=== PATIENT | male | born 1930 | race Caucasian/White ===

== ENCOUNTER 2016-07-11 18:55 | Inpatient (IN) | payer MEDICARE, OTHER ==
[~2016-07-11] VITALS: Ht 172.7 cm; Wt 85.7 kg
[~2016-07-11 18:55] MED LIST: ZES10 PO
[2016-07-11 21:38] VITALS: PULSE 92
[2016-07-11 21:40] VITALS: BP 118/56; PULSE 104; RESP 31; O2SAT 99
--- NOTE | 2016-07-11 21:42 | ABG ---
DateTimeAnalyzed 21:37:00 -_ pH ____7.436 - 7.350 7.450 pCO2 ___34.9__ -mmHg 35.0 45.0 pO2 137 -mmHg 69.0 116 HCO3- ___23.1__ -mmol/L 22.0 26.0 ABE ___-0.1__ -mmol/L -2.0 2.0 tHb ___13.9__ -g/dL O2Hb ___97.2__ -% COHb ____0.6__ -% MetHb ____1.0__ -% sO2 ___98.8__ -% 25.0 FIO2 __100.0__ -% Drawn By MM - Date/Time Notified____ 21:42:00 -_ Oxygen Device 1 NON RE-ANDRES - Notified By MM - Notified Whom RN - B 755 -mmHg tO2 ___19.1__ -Vol% Anand test N/A -
[2016-07-11] MEDS ORDERED: 0.9% Sodium Chloride 1,000 ML ONE (22:13)
[2016-07-11] MEDS ORDERED: Polyethylene Glycol (PEG) 17 Gm Powder PO PRN (23:05)
[2016-07-11] MEDS ORDERED: Alum-Mag Hydrox-Simeth 30 mL Suspension PO PRN (23:05)
[2016-07-11] MEDS ORDERED: 0.9% Sodium Chloride 1,000 ML IV ONE (23:05)
[2016-07-11] MEDS: 0.9% Sodium Chloride 1,000 ML IV SCH (23:43)
[2016-07-11 23:52] VITALS: BP 151/79; PULSE 104; RESP 34; O2SAT 95
[2016-07-12] VITALS (10 sets, daily range): BP systolic 115–153; BP diastolic 69–95; PULSE 79–101; RESP 23–40; O2SAT 95–98
--- NOTE | 2016-07-12 00:02 | PCM.HPMED ---
Subjective Date of Service Jul 11, 2016 Primary Provider: Admitting Physician: Aby Pagan MD Primary Care Physician: Yesenia Saldana MD Attending Physician: Aby Pagan MD Admit Status: Direct Admit Chief Complaint: Shortness of Breath History of Present Illness: H&P taken from Chart due to patient's mental status Mr. Foss is an 86 year old male with a history of hypertension being directly admitted from [place] for increasing difficulty breathing for 3 days with positive influenza screen. He was started on Tamiflu by his PCP on Monday and reports cough, low grade fever, myalgias, and weakness for three days with progression to confusion and labored breathing requiring increasing oxygen and duonebs to maintain normal saturation. The patient has a history of dementia at baseline, which has gotten progressively worse over the past 5 years , and now lives with his son. All other review of systems are unobtainable as there is no family available for discussion and patient is disoriented and mildly delirious. Review of Systems: Taken from chart due to patient's mental status (+) Fever, chills, fatigue, congestion, cough, SOB, wheezing, confusion, hallucinations (-) Sore throat, sinus pressure, chest pain, nausea/vomiting, abdominal pain All systems that were available to be reviewed were reviewed and pertinent positive and negatives found in history of present illness. All other systems are unable to be reviewed this time. Allergies Coded Allergies: No Known Allergies (Unverified , 07/11/16) Please verify with patient. Home Medications Cyanocobalamin 1000 mcg/mL injection Donepezil 10 mg tablet nightly Lisinopril 30 mg tablet daily Oseltamivir 75 mg capsule taken twice a day Questionable Bactrim 800-60 mg taken twice daily PMH Hypertension Urinary Incontinence, self-cath Dementia Vitamin and B12 deficiency Questionable prostate cancer status post TURP Surgical History TURP x2 Appendectomy Family History Unable to obtain due to patient's mental status Social History Hx Alcohol Use: Yes Hx Substance Use: No Hx Tobacco Use: No Living Arrangement: with Family (lives with son) Exam Vital Signs Vital Sign - Last Date Time Temp Pulse Resp B/P Pulse Ox O2 Delivery O2 Flow Rate FiO2 07/11/16 21:40 38.6 104 31 118/56 99 Non-Rebreather 15.00 Exam General - Elderly gentleman laying in bed, appears intermittently distressed but calms when told where he is. HEENT - NCAT (no obvious signs of fall or trauma), membranes moist. Anicteric sclera, PERRLA. Neck - Nontender CV - RRR, no m/g/r. Pulses intact. Lungs - Tachypneic, using accessory muscles to breathe when agitated. He is wheezing throughout all iqbal, with rhonchi in the LLL. Patient is currently on oxygen mask at 6 L; previously on BiPAP Abd - Soft, NT/ND. +BS. No guarding. Neuro - Alert, but completely disoriented. He has normal strength but is not cooperative enough for a full neuro exam. Skin - Warm, no rashes noted. Extremities - No cyanosis, clubbing, or edema. Psych - Anxious, agitated, distressed. He is noncommunicative but calms somewhat when told where he is. Lab and Diagnostics Labs Transfer labs from [facility] Influenza A PCR, positive WBC 7, RBC 4.51, Hgb 14.5, Hct 42.1, Plates 100, 89% neut Sodium 134, Potassium 3.8, Chloride 101, CO2 22, Anion Gap 11, Glucose 126, BUN 21, Creatinine 1.09 Total Protein 6.9, Albumin 3.5, Calcium 8.2, Mg 2.1, Phos 2.4, Total Bilirubin 0.9, Alk Phos 58, AST 36, ALT 27, Lactic Acid 0.7 UA pH 5.5, trace Leuk esterase, positive nitrite, 1+ blood, 2+ ketones, 4-5 WBC , 2+ bacteria X-Rays, CTs and MRIs Chest X-Ray, AP Portable, from [facility] Impression: Left lower lobe airpace disease suggesting pneumonia. Signed by: Mark Paez MD 07/11/2016 1:50 PM, [place] Time 12-lead ECG From EKG taken at [facility]): Normal sinus rhythm with rate between 90 and 100, access is appropriate, no LVH, no bundle branch blocks identified, significant artifact distorting EKG; QTC of 445 Assessment & Plan 86 year old male with increasing difficulty breathing, positive for influenza A , and with LLL infiltrate on chest x-ray. #1 Acute hypoxic respiratory failure, present on admission; ongoing -Patient positive for influenza A and LLL pneumonia -Patient is not on O2 at baseline, requiring 6 L by oxymask to maintain normal sats -Patient is DNI, will utilize Bipap if unable to maintain sats -Treat underlying cause as below -We will use BiPAP as necessary #2 Acute Sepsis; appears on admission; ongoing -Patient presents with a fever greater than 38, tachycardiac over 100, respirations over 22, however white count is normal per transferred labs -Source is left lower lobe pneumonia versus new UTI -Patient on antibiotics as below -Lactic acid normal; repeat labs -Patient given 2 L normal saline on admission; we will continue fluids at 100 mL an hour -Blood cultures obtained prior to initiation of antibiotics; sputum culture ordered and pending -Procalcitonin pending along with additional CBC and CMP #3 Influenza A, present on admission; ongoing -Patient has a positive influenza A swab per [facility] on tamiflu since 07/08/16 -Continue Tamiflu 75 mg twice a day #4 suspected community-acquired versus aspiration pneumonia, acute, present on admission; ongoing -Patient is tachypneic and requiring O2 with LLL infiltrate on CXR; -Received 2gm Rocephin at [facility] -Switch Rocephin to Zosyn to cover possibility of aspiration -Procalcitonin pending #5 Acute on chronic Confusion secondary to acute sepsis, present on admission; ongoing -Patient has baseline dementia but by report has worsened over the weekend -Likely secondary to sepsis and hypoxia -Seroquel 12.5 mg for agitation -Continue home donepezil in the a.m. #6 Concern for UTI second to incontinence, present on admission, ongoing -Patient self-caths at home; on transfer his UA reveals trace leukocyte esterase , positive nitrite, WBCs, and bacteria are all present -Repeat UA with culture -Lemon ordered for now, we will need to change once confirmation of UTI -Zosyn should be sufficient for this time Disposition: Patient being admitted to general medical floor with expected length of stay greater than two midnight due to severity of presentation, duration of treatment, and risk of adverse events. Pain Evaluation: Adequate Pain Control GI Prophylaxis: H2 you VTE Prophylaxis: Sub-Q Heparin (Unfractionated) Resuscitation Status: Limited Interventions Limited Interventions: BiPAP, Medications and IV Fluid Attending Statement The patient was seen and examined together with Dr. Rogers on 1/16 and I agree with the history, exam and plan as outlined in the note above. Yoni Rogers DO Jul 12, 2016 00:02 Joseph Suarez MD Jul 12, 2016 03:31
[2016-07-12 00:24] LABS: Magnesium 2.1 mg/dL (1.6-2.6)
[2016-07-12] MEDS: Piperacillin-Tazo 3.375 Gm Inj 3.375 GM in Dextrose 5% Minibag Plus 50 ML IV SCH ×3 (01:19→17:01)
[2016-07-12] MEDS ORDERED: 0.9% Sodium Chloride 500 ML IV ONE (01:45)
[2016-07-12] MEDS ORDERED: OSEL75CA15 (03:37)
[2016-07-12] MEDS ORDERED: SULF1TAB7 (03:37)
[2016-07-12] MEDS ORDERED: DONE10TA42 (03:37)
--- NOTE | 2016-07-12 04:01 | NUR ---
ADMIT Received pt from [facility] Monday, on 15L nonrebreather, Positive for FLU A, placed in droplet Isolation, pt confused, disoriented, and hallucinating, unable to answer any medical questions. Medical record reports history of dementia. ABGs drawn by RT, see report in chart, pt placed on 6l oxy mask sats 96%. LS course with wheezing throughout, using accessory muscles. TEL shows a ST. SEE Flow records
[2016-07-12 04:57] LABS: APPEARANCE,URINE HAZY (CLEAR,HAZY); COLOR,URINE YELLOW (YELLOW); OCCULT BLOOD,URINE MODERATE (NEGATIVE); UROBILINOGEN,URINE NORMAL (NORMAL)
--- NOTE | 2016-07-12 09:03 | DRSVH ---
PROCEDURE: X-RAY CHEST ONE VIEW, PORTABLE ([id number]) INDICATIONS: dyspnea TECHNIQUE: One view of the chest was acquired. COMPARISON: None. FINDINGS: Surgical changes and devices: None. Lungs and pleura: Pulmonary vasculature is prominent and patchy bibasilar airspace opacities are note d, left greater than right. No pleural effusion or pneumothorax. Mediastinum: Mediastinal contours appear normal. Heart size is normal. Bones and chest wall: No suspicious bony lesions. Overlying soft tissues appear unremarkable. IMPRESSION: Mild edema is suspected and atelectasis versus patchy pulmonary edema or pneumonia involving the lung bases. Recommend clinical correlation. Dictated by: Mateo JENSEN Interpreted: Elizabeth Gil MD on 07/12/2016 at 9:02 Transcribed by: LUIS on 07/12/2016 at 9:02 Approved by: Elizabeth Gil M.D. on 07/12/2016 at 16:12
[2016-07-12 09:19] LABS: BASOPHILS % (AUTO) 0.1 % (0-3); EOSINOPHILS % (AUTO) 0 % (0-5); MONOCYTES % (AUTO) 2.6 % (4-12); Mean Corpuscular Hemoglobin 31.5 pg (27.0-35.0); NEUTROPHILS % (AUTO) 87.3 % (40-74); Platelet Count 89 bil/L (150-400)
[2016-07-12] MEDS: Albuterol-Ipratropium 3 mL Inhalation Solution NEB PRN ×3 (10:13→21:01)
--- NOTE | 2016-07-12 10:37 | ABG ---
DateTimeAnalyzed 10:33:00 -_ pH ____7.417 - 7.350 7.450 pCO2 ___37.4__ -mmHg 35.0 45.0 pO2 101 -mmHg 69.0 116 HCO3- ___23.7__ -mmol/L 22.0 26.0 ABE ___-0.1__ -mmol/L -2.0 2.0 tHb ___13.1__ -g/dL O2Hb ___96.0__ -% COHb ____0.7__ -% MetHb ____1.1__ -% sO2 ___97.8__ -% 25.0 FIO2 ___50.0__ -% Drawn By gj - Date/Time Notified____ 10:37:00 -_ Liter_Flow ___10.0__ -L/min Oxygen Device 1 __OXYMASK - Notified By gj - Notified Whom ___MULDER - B 750 -mmHg tO2 ___17.7__ -Vol% Anand test _Positive -
[2016-07-12] MEDS: 0.9% Sodium Chloride 1,000 ML IV SCH ×2 (12:39→20:19)
[2016-07-12] MEDS: Nystatin 100,000 Unit/Gm 15 Gm Powder TOPICAL SCH ×2 (12:40→20:18)
--- NOTE | 2016-07-12 14:03 | NUR ---
Evaluation completed. Rec: Strict NPO. Discussed with RN. CAR FILLER to follow. Please go to "Notes" then click on "Assessments and Notes" (bottom left corner of screen). Then select appropriate discipline tab on top of screen.
[2016-07-12] MEDS ORDERED: PERAMIVIR IV ONE (17:00)
[2016-07-12] MEDS ORDERED: SODIUM CHLORIDE 0.9% IV ONE (17:00)
[2016-07-12] MEDS: Azithromycin Inj 500 MG in Dextrose 5% w/Vial Mate 250 ML IV SCH (20:18)
[2016-07-13] VITALS (13 sets, daily range): BP systolic 120–159; BP diastolic 62–98; PULSE 72–98; RESP 20–35; O2SAT 93–99
[2016-07-13] MEDS: Piperacillin-Tazo 3.375 Gm Inj 3.375 GM in Dextrose 5% Minibag Plus 50 ML IV SCH ×3 (00:48→15:49)
[2016-07-13] MEDS: 0.9% Sodium Chloride 1,000 ML IV SCH ×3 (00:52→15:56)
--- NOTE | 2016-07-13 02:37 | NUR ---
P) Respiratory/LOC/Cardiac Pt. pleasant but extremely confused and hallucinating, asking if we can fly the helicopter in his room, trying to leave, throwing legs out of bed and pulling at IV and monitors even though restrained. Cardiac rhythm sinus/sinus tach, lungs with decreased breath sounds and scattered wheezes throughout, weak cough, pt. unable to understand and give sputum sample,. I) frequent reorientation, suctioned orally for small sputum sample. C) thrashing about in bed and asking for knives so he can cut restraints and leave, pleasant demeanor, very sad.
[2016-07-13 03:02] LABS: BASOPHILS % (AUTO) 0.1 % (0-3); EOSINOPHILS % (AUTO) 0 % (0-5); MONOCYTES % (AUTO) 3.5 % (4-12); Mean Corpuscular Hemoglobin 31.9 pg (27.0-35.0); Mean Corpuscular Volume 94.9 fL (81-100); NEUTROPHILS % (AUTO) 85.3 % (40-74); Platelet Count 77 bil/L (150-400)
[2016-07-13 03:24] LABS: Phosphorus 1.7 mg/dL (2.5-4.9)
[2016-07-13] MEDS: Albuterol-Ipratropium 3 mL Inhalation Solution NEB PRN ×4 (05:37→17:26)
[2016-07-13] MEDS: Azithromycin Inj 500 MG in Dextrose 5% w/Vial Mate 250 ML IV SCH (08:16)
[2016-07-13] MEDS: Nystatin 100,000 Unit/Gm 15 Gm Powder TOPICAL SCH ×2 (08:16→20:30)
--- NOTE | 2016-07-13 09:14 | NUR ---
CATHIE Signed [phone]
--- NOTE | 2016-07-13 13:10 | PCM.PNMED ---
Subjective Date of Service Jul 13, 2016 Subjective 86-year-old man with respiratory distress due to influenza and acute delirium with chronic dementia. Patient is awake and sitting in a chair. He is responsive to voice. He offers minimal meaningful communication. He appears to be comfortable. Exam Vital Signs Vital Sign - Last Date Time Temp Pulse Resp B/P Pulse Ox O2 Delivery O2 Flow Rate FiO2 07/13/16 12:44 37.2 80 28 120/76 95 OxyMask 8.00 Intake and Output 07/12/16 07/12/16 07/13/16 Cumulative From/Thru 15:00 23:00 07:00 07/11/16 21:41 - 07/13/16 06:49 Intake Total 1081 ml 1758 ml 4397 ml Output Total 550 ml 875 ml 1875 ml Balance 531 ml 883 ml 2522 ml Intake Oral 0 ml 0 ml 0 ml IV Total 1081 ml 1758 ml 4397 ml Output Urine Total 550 ml 875 ml 1875 ml # Bowel Movements 0 0 Exam General: Elderly man in no acute distress HEENT: sclerae anicteric, oral mucosa moist Neck: no JVD, supple, no adenopathy Chest: Reduced breath sounds, diffuse rhonchi, no wheeze Cardiac: S1S2, no murmur Abdomen: BS normal, non-tender Extremities: Venous varicosities but no pitting edema Neuro: Alert but not oriented, cranial nerves appear symmetric, motor strength and tone seems normal IVs and Medications Medications Reviewed: Medications were reviewed in detail Lab and Diagnostics Result Diagram: 07/13/1621907/13/16 0220 X-Rays, CTs and MRIs Chest X-Ray, AP Portable, from [facility] Impression: Left lower lobe airpace disease suggesting pneumonia. Signed by: Mark Paez MD 07/11/2016 1:50 PM, [place] Time 12-lead ECG From EKG taken at [facility]: Normal sinus rhythm with rate between 90 and 100, access is appropriate, no LVH, no bundle branch blocks identified, significant artifact distorting EKG; QTC of 445 Assessment & Plan 86 year old male with increasing difficulty breathing, positive for influenza A , and with LLL infiltrate on chest x-ray. # Acute hypoxic respiratory failure, present on admission; ongoing -Patient positive for influenza A and LLL pneumonia -Patient is not on O2 at baseline, requiring 8-10 L by oxymask -Patient is DNI, will utilize Bipap if unable to maintain sats # Acute severe Sepsis; SIRS criteria on admission include pulse 104, respiratory rate 31, temperature 38.6. Procalcitonin elevated 0.92. Organ system dysfunction including hypoxia, decreased urine output and thrombocytopenia. -Source is left lower lobe pneumonia versus new UTI -Patient given 2 L normal saline on admission; we will continue fluids at 100 mL an hour -Blood cultures obtained prior to initiation of antibiotics; sputum culture ordered and pending -Procalcitonin pending along with additional CBC and CMP # Influenza A, present on admission; ongoing -Patient has a positive influenza A swab per [facility], on tamiflu since 07/08/16 -Continue Tamiflu 75 mg twice a day # Suspected community-acquired versus aspiration pneumonia, acute, present on admission; ongoing - Patient is tachypneic and requiring O2 with LLL infiltrate on CXR; - Received 2gm Rocephin at [facility] - Zosyn plus azithromycin initiated on admission to [facility] - Order MRSA swab, consider staphylococcal coverage if patient deteriorates clinically # Acute on chronic Confusion secondary to acute sepsis, present on admission; ongoing. Expect return to underlying baseline dementia. - Avoid benzodiazepines and anticholinergics -Continue home donepezil in the a.m. #6 Concern for UTI second to incontinence, present on admission, ongoing - Urine culture negative - Plan to discontinue Lemon catheter within 48 hours Disposition: Patient being admitted to general medical floor with expected length of stay greater than two midnight due to severity of presentation, duration of treatment, and risk of adverse events. GI Prophylaxis: H2 you VTE Prophylaxis: Sub-Q Heparin (Unfractionated) VTE Mechanical Devices: Intermittant Pneumatic CD Resuscitation Status: Limited Interventions Limited Interventions: BiPAP, Medications and IV Fluid Time spent 35 minutes Aly Plascencia MD Jul 13, 2016 13:10
--- NOTE | 2016-07-13 13:50 | NUR ---
Oxygen/ Activity: P: 8L oxymask. SpO2 high 90's. I: Pt ambulated in room with pt. SpO2 dropped to low 90's and patient had increased work of breathing, but recovers quickly. E: pt tolerated sitting up in chair for about 3 hours. Oxygen was weaned to 6L oxymask. Current SpO2: 95%
--- NOTE | 2016-07-13 15:15 | NUR ---
Social Work: Initial Assessment attempted Data: Pt has dementia at baseline. HYDROLOGY PROFESSOR called pt's son, listed as NOK, no answer, HYDROLOGY PROFESSOR left a message requesting a call back. HYDROLOGY PROFESSOR called pt's grandson, Shalini, , no answer, HYDROLOGY PROFESSOR left a message requesting a call back. PT states that SNF may be appropriate, but spoke with HYDROLOGY PROFESSOR and asked that the baseline be established with family members before recommending it. HYDROLOGY PROFESSOR will continue to follow. Plan: HYDROLOGY PROFESSOR will continue to attempt calling pt's family members to establish what pt's baseline is and will let PT know. HYDROLOGY PROFESSOR will continue to follow. LINDSEY Nicholas
--- NOTE | 2016-07-13 17:21 | PCM.PNMED ---
Subjective Date of Service Jul 12, 2016 Subjective Note written on 07/12 but not saved in the system. Rewritten on 07/13. Fabian Foss is an 86 year old male with increasing difficulty breathing, positive for influenza A, and with LLL infiltrate on chest x-ray. Hospital day 1. Overnight: Patient admitted and placed on oxymask. Increased work of breathing but maintaining O2 sats. Patient agitated and placed in restraints. Today: Patient is confused and is unable to answer questions appropriately. Continues with oxymask but has increased work of breathing noted by accessory muscle use. Review of systems unobtainable. Exam Vital Signs Vital Sign - Last Date Time Temp Pulse Resp B/P Pulse Ox O2 Delivery O2 Flow Rate FiO2 07/13/16 15:22 36.8 81 26 140/88 93 OxyMask 6.00 Intake and Output 07/12/16 07/12/16 07/13/16 Cumulative From/Thru 15:00 23:00 07:00 07/11/16 21:41 - 07/13/16 06:49 Intake Total 1081 ml 1758 ml 4397 ml Output Total 550 ml 875 ml 1875 ml Balance 531 ml 883 ml 2522 ml Intake Oral 0 ml 0 ml 0 ml IV Total 1081 ml 1758 ml 4397 ml Output Urine Total 550 ml 875 ml 1875 ml # Bowel Movements 0 0 Exam General - Elderly gentleman in mild distress lying in bed. HEENT - Membranes moist. Anicteric sclera, PERRLA. Neck - Nontender CV - RRR, no m/g/r. Pulses intact. Lungs - Tachypneic, using accessory muscles to breathe. Wheezing throughout all iqbal, with rhonchi in the LLL. Patient is currently on oxygen mask at 6 L. Abd - Soft, NT/ND. +BS. No guarding. Neuro - Alert, but completely disoriented. He has normal strength but is not cooperative enough for a full neuro exam. Skin - Warm, no rashes noted. Extremities - No cyanosis, clubbing, or edema. Psych - Anxious, agitated, distressed. He is noncommunicative but calms somewhat when told where he is. Lab and Diagnostics Result Diagram: 07/13/1621907/13/16219 X-Rays, CTs and MRIs Chest X-Ray, AP Portable, from [facility] Impression: Left lower lobe airpace disease suggesting pneumonia. Signed by: Mark Paez MD 07/11/2016 1:50 PM, [place] Time 12-lead ECG From EKG taken at [facility]: Normal sinus rhythm with rate between 90 and 100, access is appropriate, no LVH, no bundle branch blocks identified, significant artifact distorting EKG; QTC of 445 Assessment & Plan 86 year old male with increasing difficulty breathing, positive for influenza A , and with LLL infiltrate on chest x-ray. Hospital day 1. #1 Acute hypoxic respiratory failure, present on admission; ongoing -Patient positive for influenza A and LLL pneumonia -Patient is not on O2 at baseline, requiring 6 L by oxymask to maintain normal sats -Patient is DNI, will utilize Bipap if unable to maintain sats -Treat underlying cause as below -We will use BiPAP as necessary #2 Acute Sepsis; appears on admission; improving. -Patient presents with a fever greater than 38, tachycardiac over 100, respirations over 22, however white count is normal per transferred labs -Source is left lower lobe pneumonia versus new UTI -Patient on antibiotics as below -Lactic acid normal; repeat labs -Patient given 2 L normal saline on admission; we will continue fluids at 100 mL an hour -Blood cultures obtained prior to initiation of antibiotics; sputum culture ordered and pending -Procalcitonin pending along with additional CBC and CMP #3 Influenza A, present on admission; under treatment. -Patient has a positive influenza A swab per [facility], on tamiflu since 07/08/16 -Patient is NPO peramivir IV given 07/12/16. #4 suspected community-acquired versus aspiration pneumonia, acute, present on admission; ongoing -Patient is tachypneic and requiring O2 with LLL infiltrate on CXR; -Received 2gm Rocephin at [facility] -Switch Rocephin to Zosyn to cover possibility of aspiration -Procalcitonin 0.47 #5 Acute on chronic confusion secondary to acute sepsis, present on admission; ongoing -Patient has baseline dementia but by report has worsened over the weekend -Likely secondary to sepsis and hypoxia -Seroquel 12.5 mg for agitation -Continue home donepezil in the a.m. #6 Concern for UTI second to incontinence, present on admission, ongoing -Patient self-caths at home; on transfer his UA reveals trace leukocyte esterase , positive nitrite, WBCs, and bacteria are all present -Repeat UA with culture -Lemon ordered for now, we will need to change once confirmation of UTI -Zosyn should be sufficient for this time Disposition: Patient will need SNF likely upon discharge. GI Prophylaxis: H2 you VTE Prophylaxis: Sub-Q Heparin (Unfractionated) VTE Mechanical Devices: Intermittant Pneumatic CD Resuscitation Status: Limited Interventions Limited Interventions: BiPAP, Medications and IV Fluid Attending Statement The patient was seen and examined together with Dr. Purvis on 07-13-16 and I agree with the history, exam and plan as outlined in the note above. JOSH PURVIS DO Jul 13, 2016 17:21 Monet Avila MD Aug 08, 2016 09:38
[2016-07-13] MEDS: Ampicillin-Sulbactam Inj 1,500 MG in 0.9% Sodium Chloride 50 ML IV SCH (21:00)
--- NOTE | 2016-07-13 23:12 | NUR ---
O2/MENTATION Pt alert to self, impulsive and restless at times. Pt pulls at tele leads and pulse oximeter sensor. Pt currently on 6L O2 NC sating mid 90's with no SOB noted. Pt on HTL for crushed meds only, took meds with no swallowing issues. Pt frequently repositions self. No other issues noted at this time.
[2016-07-14] VITALS (8 sets, daily range): BP systolic 123–157; BP diastolic 59–94; PULSE 72–88; RESP 18–32; O2SAT 78–97
[2016-07-14] MEDS: Ampicillin-Sulbactam Inj 1,500 MG in 0.9% Sodium Chloride 50 ML IV SCH ×4 (02:30→21:58)
[2016-07-14 04:23] LABS: BASOPHILS % (AUTO) 0 % (0-3); EOSINOPHILS % (AUTO) 0.3 % (0-5); MONOCYTES % (AUTO) 4.7 % (4-12); Mean Corpuscular Hemoglobin 32.1 pg (27.0-35.0); Mean Corpuscular Volume 95.1 fL (81-100); NEUTROPHILS % (AUTO) 81.5 % (40-74); Platelet Count 99 bil/L (150-400)
[2016-07-14] MEDS: 0.9% Sodium Chloride 1,000 ML IV SCH ×2 (07:42→21:58)
[2016-07-14] MEDS: Nystatin 100,000 Unit/Gm 15 Gm Powder TOPICAL SCH ×2 (07:42→21:58)
[2016-07-14] MEDS: Azithromycin Inj 500 MG in Dextrose 5% w/Vial Mate 250 ML IV SCH (07:43)
--- NOTE | 2016-07-14 10:07 | NUR ---
Social Work: Continued Attempted Assessment D: Pt discussed in morning rounds. Pt remains confused and lethargic. Per ST pt remains NPO. PT worked with pt yesterday; pt ambulated 30 feet and is recommending SNF. At this time, pt's baseline functioning is still to be determined and will need to be identified before pt's rehab potential can be determined. Pt currently on IV ABX. t/c to pt's son, Sd Foss. No answer. Left message requested return phone call on case management phone to discuss pt's PLOF and discharge planning. A: Pt who is has dementia at baseline. P: CHIEF PROGRAM OFFICER to continue to contact pt's son to complete initial assessment and determine PLOF and dcp. LINDSEY Fisher
--- NOTE | 2016-07-14 10:15 | NUR ---
CATHIE: POULTRY TRIMMER will give CATHIE to son via phone.
[2016-07-14] MEDS: Albuterol-Ipratropium 3 mL Inhalation Solution NEB PRN (10:30)
--- NOTE | 2016-07-14 13:00 | PCM.PNMED ---
Subjective Date of Service Jul 14, 2016 Subjective The patient notes his lumbar short of breath today. He is coughing up intermittent phlegm which is yellow. He denies any chest pain. No nausea vomiting or abdominal pain. He is alert and oriented only to self. Exam Vital Signs Vital Sign - Last Date Time Temp Pulse Resp B/P Pulse Ox O2 Delivery O2 Flow Rate FiO2 07/14/16 10:31 77 28 95 Nasal Cannula 6.00 07/14/16 07:39 36.7 128/75 Intake and Output 07/13/16 07/13/16 07/14/16 Cumulative From/Thru 15:00 23:00 07:00 07/11/16 21:41 - 07/14/16 06:26 Intake Total 1562 ml 870 ml 6829 ml Output Total 2800 ml 1175 ml 5850 ml Balance -1238 ml -305 ml 979 ml Intake Oral 100 ml 0 ml 100 ml IV Total 1462 ml 870 ml 6729 ml Output Urine Total 2800 ml 1175 ml 5850 ml # Bowel Movements 0 0 Exam Third oriented 1. No distress. Fluent speech. Normal skull. Anicteric sclerae. Neck supple. Lungs scattered rhonchi minimal expiratory wheezing, normal rate Heart is regular without murmur gallop or rub. Soft nondistended. Extremities 1+ edema. Normal radial pulses. IVs and Medications Medications Reviewed: Medications were reviewed in detail Lab and Diagnostics Result Diagram: 07/14/16 0345 07/14/16344 X-Rays, CTs and MRIs Chest X-Ray, AP Portable, from [facility] Impression: Left lower lobe airpace disease suggesting pneumonia. Signed by: Mark Paez MD 07/11/2016 1:50 PM, [place] Time 12-lead ECG From EKG taken at [facility]: Normal sinus rhythm with rate between 90 and 100, access is appropriate, no LVH, no bundle branch blocks identified, significant artifact distorting EKG; QTC of 445 Assessment & Plan 86 year old male with increasing difficulty breathing, positive for influenza A , and with LLL infiltrate on chest x-ray. Hospital day 1. #1 Acute hypoxic respiratory failure, present on admission; ongoing -Patient positive for influenza A and LLL pneumonia -Patient is not on O2 at baseline, requiring 6 L by oxymask to maintain normal sats -Patient is DNI, will utilize Bipap if unable to maintain sats -Treat underlying cause as below -We will use BiPAP as necessary This is slowly improving. #2 Acute Sepsis; appears on admission; improving. -Patient presents with a fever greater than 38, tachycardiac over 100, respirations over 22, however white count is normal per transferred labs -Source is left lower lobe pneumonia versus new UTI -Patient on antibiotics as below - #3 Influenza A, present on admission; under treatment. -Patient has a positive influenza A swab per [facility], on tamiflu since 07/08/16 -Patient is NPO peramivir IV given 07/12/16. #4 suspected community-acquired versus aspiration pneumonia, acute, present on admission; ongoing -Patient is tachypneic and requiring O2 with LLL infiltrate on CXR; -Received 2gm Rocephin at [facility] We will simplify to Zosyn only for possible aspiration pneumonia. #5 septic encephalopathy, in context of chronic dementia., present on admission ; ongoing -Patient has baseline dementia but by report has worsened over the weekend -Likely secondary to sepsis and hypoxia -Seroquel 12.5 mg for agitation -Continue home donepezil in the a.m. #6 Concern for UTI , cultures ultimately did not support this. Disposition: Patient will need SNF likely upon discharge. Pain Evaluation: Adequate Pain Control GI Prophylaxis: H2 you VTE Prophylaxis: Sub-Q Heparin (Unfractionated) VTE Mechanical Devices: Intermittant Pneumatic CD Resuscitation Status: Limited Interventions Limited Interventions: BiPAP, Medications and IV Fluid Time spent 25 minutes Anand Canseco MD Jul 14, 2016 13:00
--- NOTE | 2016-07-14 15:39 | NUR ---
NUTRITION ASSESSMENT Assess: 86 yo M w/ acute hypoxic respiratory failure, LLL pneumonia, influenza A, and acute encephalopathy in context of dementia. Pt has been NPO x3 days w/ diet advanced today to pureed w/ honey thick liquids per ST and tolerating well. Pt is only alert and oriented to himself. PMHx: HTN, Dementia, Vit B12 deficieny LABS: Reviewed. BUN 7, Cr 0.71, Ca 7.7, Albumin 2.8 MEDICATIONS: Reviewed DIET: Pureed w/ HTL, PO 100% GI symptoms/stool: No BM recorded Skin integrity: No issues reported; Bill: 15 ANTHROPOMETRICS: Current Wt: 84.5 kg BMI: 28.3 kg/y5Fogol Wt: 83.6 kg IBW: 70 kgRecent wt changes: Wt stable ESTIMATED NEEDS: Calories: 1062-7562 kcal/d (25-30 kcal/kg/d) Protein: 85-100 g/d (1-1.2 g/kg/d) Fluids: 6376-8928 ml/d (25-30 ml/kg/d) NUTRITION DIAGNOSIS: 1) Chewing/swallowing difficulty related to mentation as evidenced by dementia. INTERVENTION: 1) Diet per ST recommendations 2) Will add supplements as appropriate MONITOR/EVALUATE: PO intake, Diet adv/abdulkadir, Labs, Wt, Nutrition status, POC. Will follow per moderate nutrition risk guidelines.
--- NOTE | 2016-07-14 16:15 | DRSVH ---
PROCEDURE: X-RAY CHEST ONE VIEW, PORTABLE ([id number]) INDICATIONS: cough TECHNIQUE: One view of the chest was acquired. COMPARISON: [facility], CR, XR CHEST 1VW (PORTABLE), 07/11/2016, 23:05. FINDINGS: Surgical changes and devices: None. Lungs and pleura: No pleural effusions or pneumothorax. Bibasilar airspace opacities present, left greater than right, otherwise lungs are clear. Mediastinum: Mediastinal contours appear normal. Heart size is normal. Bones and chest wall: No suspicious bony lesions. Overlying soft tissues appear unremarkable. IMPRESSION: Bibasilar atelectasis versus aspiration or pneumonia. Correlate clinically. Dictated by: Mateo Matos RRA Interpreted: Ping Raygoza MD on 07/14/2016 at 16:14 Transcribed by: MARISA on 07/14/2016 at 16:14 Approved by: Ping Raygoza MD, PhD on 07/14/2016 at 16:35
--- NOTE | 2016-07-14 17:28 | NUR ---
Activity Patient alert and oriented to self only. Requires constant reorienting to surroundings and situation. Diet upgraded to pureed, patient up in chair for meals and tolerating well. 1PA to BSC. Maintaining SpO2 in mid 90s on 6L NC. All other VSS. Patient resting in bed with eyes closed,call light within reach.
[2016-07-15] VITALS (10 sets, daily range): BP systolic 133–160; BP diastolic 80–106; PULSE 80–104; RESP 18–24; O2SAT 90–95
[2016-07-15] MEDS: Ampicillin-Sulbactam Inj 1,500 MG in 0.9% Sodium Chloride 50 ML IV SCH ×4 (05:22→20:19)
--- NOTE | 2016-07-15 05:27 | NUR ---
Mentation/Respiratory Pt alert to self only and needs frequent reorientation of plan of care and environment. Pt cooperative with care and pleasant. Pt titrated from 6L NC to 4L NC with SpO2 95%. VSS and pt is no longer on tele.
[2016-07-15] MEDS: 0.9% Sodium Chloride 1,000 ML IV SCH ×2 (07:05→17:05)
--- NOTE | 2016-07-15 08:22 | PCM.PNMED ---
Subjective Date of Service Jul 15, 2016 Subjective He is still a little dyspneic. Cough is improving. No fevers or nausea. No abdomen pain. Exam Vital Signs Vital Sign - Last Date Time Temp Pulse Resp B/P Pulse Ox O2 Delivery O2 Flow Rate FiO2 07/15/16 04:46 36.6 82 22 141/87 91 Nasal Cannula 4.00 Intake and Output 07/14/16 07/14/16 07/15/16 Cumulative From/Thru 15:00 23:00 07:00 07/11/16 21:41 - 07/15/16 06:08 Intake Total 1715 ml 1228 ml 9772 ml Output Total 975 ml 700 ml 7525 ml Balance 740 ml 528 ml 2247 ml Intake Oral 360 ml 240 ml 700 ml IV Total 1355 ml 988 ml 9072 ml Output Urine Total 975 ml 700 ml 7525 ml # Bowel Movements 1 1 2 Exam NAD, fluent speech Lungs 2/4 sounds. Some expiration wheezing. CV RRR Abdomen soft, NT No edema No rash IVs and Medications Medications Reviewed: Medications were reviewed in detail Lab and Diagnostics Result Diagram: 07/14/16 0345 07/15/16 0240 X-Rays, CTs and MRIs Chest X-Ray, AP Portable, from [facility] Impression: Left lower lobe airpace disease suggesting pneumonia. Signed by: Mark Paez MD 07/11/2016 1:50 PM, [place] Time 12-lead ECG From EKG taken at [facility]: Normal sinus rhythm with rate between 90 and 100, access is appropriate, no LVH, no bundle branch blocks identified, significant artifact distorting EKG; QTC of 445 Assessment & Plan 86 year old male with increasing difficulty breathing, positive for influenza A , and with LLL infiltrate on chest x-ray. Hospital day 1. #1 Acute hypoxic respiratory failure, present on admission; ongoing -Patient positive for influenza A and LLL pneumonia The patient is slowly improving but still has an oxygen requirement about 2-3 L nasal cannula. #2 Acute Sepsis; appears on admission; resolved.. -Patient presents with a fever greater than 38, tachycardiac over 100, respirations over 22, however white count is normal per transferred labs -Source is left lower lobe pneumonia versus new UTI -Patient on antibiotics as below - #3 Influenza A, present on admission; under treatment. -Patient has a positive influenza A swab per [facility], on tamiflu since 07/08/16 -Patient is NPO peramivir IV given 07/12/16. #4 suspected community-acquired versus aspiration pneumonia, acute, present on admission; ongoing -Patient is tachypneic and requiring O2 with LLL infiltrate on CXR; -Received 2gm Rocephin at [facility] We will simplify to Unasyn only for possible aspiration pneumonia. #5 septic encephalopathy, in context of chronic dementia., present on admission ; improved -Patient has baseline dementia but by report has worsened over the weekend -Likely secondary to sepsis and hypoxia -Seroquel 12.5 mg for agitation -Continue home donepezil in the a.m. 6. Baseline dementia, POA. Stable. I had a discussion on the telephone with his son today. They have looked at using this point in time as a bridge from living independently to a more assisted living situation in Monday. The patient currently has severe medical debilitation from his acute illness and well benefit from a long-term facility rehabilitation Tanya will begin organize this, likely in Monday. Disposition: Patient will need SNF likely upon discharge. Pain Evaluation: Adequate Pain Control GI Prophylaxis: H2 you VTE Prophylaxis: Sub-Q Heparin (Unfractionated) VTE Mechanical Devices: Intermittant Pneumatic CD Resuscitation Status: Limited Interventions Limited Interventions: BiPAP, Medications and IV Fluid Time spent 25 minutes Anand Canseco MD Jul 15, 2016 08:22
[2016-07-15 08:25] LABS: Mean Corpuscular Hemoglobin 31.9 pg (27.0-35.0); Mean Corpuscular Volume 95.6 fL (81-100)
[2016-07-15] MEDS: Nystatin 100,000 Unit/Gm 15 Gm Powder TOPICAL SCH ×2 (08:30→20:23)
--- NOTE | 2016-07-15 09:26 | NUR ---
Social Work: Initial Assessment D: Per EMR review; pt is an 86 year old male admitted for POS Flu, Tachypneic, Confusion. Pt is Medicare with [employer] out of [place]; pt has no LTC insurance or VA benefits. PCP Is Yesenia Saldana MD. NOK is Sd Foss, son, . Advanced directives completed but not on file- pt's son will provide copy. Readmit score is low, 2/8. t/c to pt's son to complete assessment. Sw role explained. See initial assessment. Pt lives with his son on Monday. Prior to admission, pt was completely I with ambulation and used no DME. Pt has baseline dementia and requires assistance with medications, meal prep and chores. Pt has a visiting nurse that the family has hired who comes to the pt's home for catheter management. Family has been working with [facility] in [place] and have put a deposit down on the pt's room. SHERIFF reviewed PT recommendations for SNF with family however they do not wish for pt to go to skilled rehab as they feel it would confuse him. SHERIFF reviewed that pt has been ambulating 60 feet with FWW, they feel this is baseline for him expect for the use of the walker. They do have a walker available to them for pt's use. Family provided verbal consent to send clinical information to the [facility]. t/c to Keith, academic affairs director, at the [facility] ( ). He states that they will not need to complete a bedside assessment but would like clinicals sent to ([phone] attn: Keith) so that he can review. He is meeting with the family today. They are prepared to accept the pt over the weekend. AUDIO VISUAL ARTS DIRECTOR to fax clinicals. A: Pt with baseline dementia. P: Anticipate pt to discharge to [facility] when medically ready; they are reviewing pt's clinicals and do not require a bedside assessment prior to admission. Family to transport the pt. SHERIFF to continue to follow. LINDSEY Fisher Addendum: 07/15/16 at 1029 by SHANTE KENNEDY SS Amended: Links added.
--- NOTE | 2016-07-15 09:30 | NUR ---
[facility] Signed
--- NOTE | 2016-07-15 10:33 | NUR ---
Faxed clinicals to [facility] [phone] ATTN:Keith hugo MSW
--- NOTE | 2016-07-15 14:00 | NUR ---
Impulsiveness/safety concerns 2' to Dementia Ongoing impulsiveness, restlessness and disorientation requiring several hours of 1:1 RN @ bedside to keep pt safe. All options used; by 1400 though pt requiring Sitter for safety issues. MDs aware.
[2016-07-16] MEDS: Ampicillin-Sulbactam Inj 1,500 MG in 0.9% Sodium Chloride 50 ML IV SCH ×4 (02:52→21:22)
[2016-07-16 03:23] LABS: BASOPHILS % (AUTO) 0.2 % (0-3); EOSINOPHILS % (AUTO) 3.3 % (0-5); MONOCYTES % (AUTO) 10.3 % (4-12); Mean Corpuscular Hemoglobin 31.6 pg (27.0-35.0); Mean Corpuscular Volume 93.4 fL (81-100); NEUTROPHILS % (AUTO) 64.7 % (40-74); Platelet Count 161 bil/L (150-400)
--- NOTE | 2016-07-16 04:33 | NUR ---
mentation/ respiratory Pt alert to self, but very forgetful and impulsive. Although confused, pt very pleasant and compliant with care. Sp02 maintained mid 90s on 3 l NC- pt does desat into mid when he takes off NC. Sitter rounding on pt- frequent reorientation and direction given. Pt only sleeping minimal amounts.
[2016-07-16] MEDS: 0.9% Sodium Chloride 1,000 ML IV SCH ×3 (06:28→18:07)
--- NOTE | 2016-07-16 08:17 | PCM.PNMED ---
Subjective Date of Service Jul 16, 2016 Subjective He feels somewhat better. He is still coughing. He is less short of breath. He denies any headache, chest pain or abdominal pain. No nausea or diarrhea. Exam Vital Signs Vital Sign - Last Date Time Temp Pulse Resp B/P Pulse Ox O2 Delivery O2 Flow Rate FiO2 07/15/16 23:35 36.6 82 23 157/91 94 Nasal Cannula 3.00 Intake and Output 07/15/16 07/15/16 07/16/16 Cumulative From/Thru 15:00 23:00 07:00 07/11/16 21:41 - 07/16/16 06:41 Intake Total 1322 ml 1672 ml 1518 ml 33239 ml Output Total 400 ml 1000 ml 3000 ml 74865 ml Balance 922 ml 672 ml -1482 ml 2359 ml Intake Oral 350 ml 700 ml 400 ml 2150 ml IV Total 972 ml 972 ml 1118 ml 06007 ml Output Urine Total 400 ml 1000 ml 3000 ml 67967 ml # Bowel Movements 1 2 5 Exam Alert and oriented to self. No distress. Fluent speech. Lungs are mostly clear with minimal wheezing. No focal findings, normal effort rate Heart is regular without murmur gallop or rub Abdomen is soft nondistended. Extremities are free of edema with good pedal pulses. Skin is free of rash or lesions IVs and Medications Medications Reviewed: Medications were reviewed in detail Lab and Diagnostics Result Diagram: 07/16/165 07/16/16244 X-Rays, CTs and MRIs Chest X-Ray, AP Portable, from [facility] Impression: Left lower lobe airpace disease suggesting pneumonia. Signed by: Mark Paez MD 07/11/2016 1:50 PM, [place] Time 12-lead ECG From EKG taken at [facility] [place]: Normal sinus rhythm with rate between 90 and 100, access is appropriate, no LVH, no bundle branch blocks identified, significant artifact distorting EKG; QTC of 445 Assessment & Plan 86 year old male with increasing difficulty breathing, positive for influenza A , and with LLL infiltrate on chest x-ray. Hospital day 1. 1 Acute hypoxic respiratory failure, present on admission; ongoing -Patient positive for influenza A and LLL pneumonia The patient is slowly improving but still has an oxygen requirement about 2-3 L nasal cannula. He is likely stable for discharge to custodial facility at this point. 2 Acute Sepsis; appears on admission; resolved.. 3 Influenza A, present on admission; under treatment. -Patient has a positive influenza A swab per [facility], on tamiflu since 07/08/16 -Patient is NPO peramivir IV given 07/12/16. 4 suspected community-acquired versus aspiration pneumonia, acute, present on admission; ongoing We will simplify to Unasyn only for possible aspiration pneumonia. 5 septic encephalopathy, in context of chronic dementia., present on admission; improved -Patient has baseline dementia but by report has worsened over the weekend -Likely secondary to sepsis and hypoxia -Seroquel 12.5 mg for agitation -Continue home donepezil in the a.m. 6. Baseline dementia, POA. Stable. Disposition. The patient will likely require a custodial facility disposition. However the family apparently wants to attempt an assisted living new transition. Pain Evaluation: Adequate Pain Control GI Prophylaxis: H2 you VTE Prophylaxis: Sub-Q Heparin (Unfractionated) VTE Mechanical Devices: Intermittant Pneumatic CD Resuscitation Status: DNR/DNI:Do Not Resuscitate/Intubate Limited Interventions: BiPAP, Medications and IV Fluid Time spent 25 minutes Anand Canseco MD Jul 16, 2016 08:16
[2016-07-16 10:20] VITALS: BP 124/79; PULSE 91; RESP 22; O2SAT 95
[2016-07-16] MEDS: Nystatin 100,000 Unit/Gm 15 Gm Powder TOPICAL SCH ×2 (10:31→21:22)
--- NOTE | 2016-07-16 11:09 | NUR ---
Social work note - Continued D/C plan [employer]IEF OF [employer]ITAL [employer]ISTICS spoke with - identified that pt may be ready for D/C tomorrow. Pt continues on 3L O2. [employer]F OF [employer]ITAL [employer]IST[employer] called [place] [facility] and spoke with Yessica MEDEIROS. Asked if they could arrange O2 for pt to transport. Yessica identified that they have no access to O2 until Monday. [employer]F [employer]ITAL [employer]IST[employer] spoke with [facility] Resp therapist who states that they would not be able to loan that many tanks to get thru 24 hours of O2. CHIEF OF VITAL STATIST[employer] spoke with Dr Canseco - He agrees that pt should stay in hospital until Monday due to [facility] not being able to access DME before monday. CHIEF OF [employer]ITAL [employer]IST[employer] updated pt's son Sd. Plan: To the [facility] at [facility] on Monday - O2 tanks needed as well as Priority boarding pass for Mamadou. АННА Son
[2016-07-16 11:10] VITALS: PULSE 77; RESP 24; O2SAT 97
[2016-07-16 11:47] VITALS: BP 139/94; PULSE 88; RESP 22; O2SAT 93
[2016-07-16 16:46] VITALS: BP 145/94; PULSE 75; RESP 20; O2SAT 96
--- NOTE | 2016-07-16 17:25 | NUR ---
Oxygenation/Ambulation Patient alert and oriented to self only throughout shift -- remained pleasant and cooperative. Has not had sitter since 1500, so far patient has not tried to get OOB and has not picked or interfered with lines/care. No reports of n/v/d/c, no pain. SPO2 on 4L NC 96% at rest. Up with PT this morning, tolerated fair, needed frequent cueing. 1PA with FWW, up to BSC and chair multiple times -- tolerated fair, RR increases to upper 20s and SPO2 drops to 90%. Per Physical therapy, SPO2 dropped to mid 80s and had to be increased from 3-4L NC.
[2016-07-16 19:32] VITALS: BP 159/96; PULSE 93; RESP 18; O2SAT 93
[2016-07-17] VITALS (8 sets, daily range): BP systolic 130–165; BP diastolic 75–102; PULSE 74–99; RESP 18–26; O2SAT 88–95
--- NOTE | 2016-07-17 01:06 | NUR ---
MENTATION/IMPULSIVENESS Pt was extremely confused and impulsive. Pt A&O to self only. Pt attempted to get out of bed every few minutes throughout the night. Pt was redirected to lay back down for safety, but patient unaware of safety risk. Pt pleasantly confused and stated that he "only wanted to help" as he would get out of bed, over and over again. Vitals stable with slight hypertension 156/90. Pt continues to remove nasal cannula and c/o shortness of breath afterwards.
[2016-07-17] MEDS: Ampicillin-Sulbactam Inj 1,500 MG in 0.9% Sodium Chloride 50 ML IV SCH ×4 (02:42→19:40)
--- NOTE | 2016-07-17 08:12 | PCM.PNMED ---
Subjective Date of Service Jul 17, 2016 Subjective Patient denies any difficulty with breathing but still has a cough. He is alert and oriented only to self. He believes he slept 7 hours last night but in fact slept not at all. He denies any chest or abdominal pain. Exam Vital Signs Vital Sign - Last Date Time Temp Pulse Resp B/P Pulse Ox O2 Delivery O2 Flow Rate FiO2 07/17/16 03:45 36.4 87 22 165/102 91 Nasal Cannula 2.00 Intake and Output 07/16/16 07/16/16 07/17/16 Cumulative From/Thru 15:00 23:00 07:00 07/11/16 21:41 - 07/17/16 06:15 Intake Total 1733 ml 350 ml 77389 ml Output Total 1925 ml 1000 ml 93000 ml Balance -192 ml -650 ml 1517 ml Intake Oral 800 ml 0 ml 2950 ml IV Total 933 ml 350 ml 86831 ml Output Urine Total 1925 ml 1000 ml 26413 ml # Bowel Movements 1 6 Exam Oriented 1, no distress. Fluent speech Anicteric sclerae. Lungs are clear with normal effort. Heart is regular without murmur Abdomen soft nondistended pathogens are free of edema. IVs and Medications Medications Reviewed: Medications were reviewed in detail Lab and Diagnostics Result Diagram: 07/16/165 07/16/16 0245 X-Rays, CTs and MRIs Chest X-Ray, AP Portable, from [facility] Impression: Left lower lobe airpace disease suggesting pneumonia. Signed by: Mark Paez MD 07/11/2016 1:50 PM, [place] Time 12-lead ECG From E[facility] taken at [facility]: Normal sinus rhythm with rate between 90 and 100, access is appropriate, no LVH, no bundle branch blocks identified, significant artifact distorting EKG; QTC of 445 Assessment & Plan 86 year old male with increasing difficulty breathing, positive for influenza A , and with LLL infiltrate on chest x-ray. Hospital day 1. 1 Acute hypoxic respiratory failure, present on admission; ongoing and improved. -Patient positive for influenza A and LLL pneumonia The patient is slowly improving but still has an oxygen requirement about 2-3 L nasal cannula. He is likely stable for discharge to assisted living with home oxygen tomorrow. 2 Acute Sepsis (flu A); appears on admission; resolved.. 3 Influenza A, present on admission; status post treatment. 4. Possible community-acquired versus aspiration pneumonia, acute, present on admission; ongoing We will simplify to Unasyn only for possible aspiration pneumonia. 5 septic encephalopathy, in context of chronic dementia., present on admission; improved -Patient has baseline dementia but by report has worsened over the weekend -Likely secondary to sepsis and hypoxia -Seroquel 12.5 mg for agitation -Continue home donepezil in the a.m. 6. Baseline dementia, POA. Stable. Disposition. Anticipate a discharge to assisted living on Monday with home oxygen. I recommend discharge with home oxygen. He will require oxygen 3 L nasal cannula 24 hours a day. His family is aware of his need for short-term oxygen as he recovers fully from his influenza illness. GI Prophylaxis: H2 you VTE Prophylaxis: Sub-Q Heparin (Unfractionated) VTE Mechanical Devices: Intermittant Pneumatic CD Resuscitation Status: DNR/DNI:Do Not Resuscitate/Intubate Limited Interventions: BiPAP, Medications and IV Fluid Time spent 20 minute Anand Canseco MD Jul 17, 2016 08:12
[2016-07-17] MEDS: 0.9% Sodium Chloride 1,000 ML IV SCH ×2 (09:05→19:31)
[2016-07-17] MEDS: Nystatin 100,000 Unit/Gm 15 Gm Powder TOPICAL SCH ×2 (09:50→19:40)
[2016-07-17] MEDS: Albuterol-Ipratropium 3 mL Inhalation Solution NEB PRN (11:56)
--- NOTE | 2016-07-17 12:00 | NUR ---
Respiratory Pt assessed for Home O2 need Pt laying in bed breathing RA: Sat 88% Pt laying in bed on 2L NC: 92-93%
--- NOTE | 2016-07-17 18:42 | NUR ---
Mood/Ambulation Patient still confused, alert and oriented to self only. Patient's spirits seemed down today vs yesterday, stating "they're lying to me, I'm not getting better" -- encouraged patient to keep deep breathing and remaining compliant with medications. Mood seemed to improve slightly when up to Cassandra chair in a reclining position -- needs a lot of encouragement and reassurance. Patient up light 1PA with FWW to BSC and chair, tolerates well but does need frequent cueing on turning/positioning. BP 130s-140s systolic, no pain, SPO2 on 3LNC 95%, no reports of nausea, soft brown BM.
--- NOTE | 2016-07-17 20:35 | NUR ---
TRANSFER Pt given evening meds, vitals stable, mentation slightly confused, but improved from last night. Pt was [facility] [place] [facility]21, report given to Estrella Gonsalez RN. Pt was transported via wheelchair with all belongings with DYED YARN OPERATOR and charge nurse. Son was notified of the room transfer and will be picking up his father in the morning.
--- NOTE | 2016-07-18 00:10 | NUR ---
Agitation Pt is restless. Pulling of his gown. Pulling off his oxygen. Reoriented to time and place. Given warm blankets. Given sips of honey thick water. Appears calmer. Will cont to monitor
[2016-07-18] MEDS: Ampicillin-Sulbactam Inj 1,500 MG in 0.9% Sodium Chloride 50 ML IV SCH ×2 (01:58→09:06)
[2016-07-18 04:33] VITALS: BP 138/78; PULSE 68; RESP 18; O2SAT 88
[2016-07-18] MEDS: 0.9% Sodium Chloride 1,000 ML IV SCH (05:05)
[2016-07-18 08:43] VITALS: BP 147/85; PULSE 87; RESP 18; O2SAT 90
[2016-07-18] MEDS: Nystatin 100,000 Unit/Gm 15 Gm Powder TOPICAL SCH (09:06)
--- NOTE | 2016-07-18 11:15 | NUR ---
O2 ASSESSMENT COMPLETED07/17/16. [facility] NOTIFIED OF 02 NEEDS
--- NOTE | 2016-07-18 12:51 | NUR ---
Social Work-discharge: Data:EMR Reviewed. Pt is on day 7 of hospitalization for pos flu per H&P. Pt is medically stable for discharge. PT has seen pt and recommend assisted living. Pt has been accepted at [facility] on Monday. JEWELS placed a call to Anitra at [facility] at the [place] on Monday and they are able to accept pt today. JEWELS met with pt's son Sd at bedside who is providing transport back to [place] today. JEWELS provided him with Priority boarding pass. JEWELS spoke with RT who states pt has been set up with [facility]. JEWELS called [facility] and they will met with pt and family in [place]. JEWELS provided son with phone number for worker to call through [facility]. RT here at hospital to send pt with O2 tank through [facility]. JEWELS faxed discharge orders to [facility] the [place] on Monday and informed [place] that they are [place] [address]. RN,UC,pt/family, [facility], and [facility] on [place] all updated and agreeable. Assessment:Pt who would benefit from Assisted living. Plan:Pt to discharge to [facility] the [place] [facility] on [place] today via ferry at 1400. Priority boarding pass provided. [facility] to meet with pt and son in [place] to provide home O2. RT to send pt with O2 from hospital through [facility]. Discharge orders faxed to [facility] on Monday. RN,UC,pt/family, [facility], and [facility] on [place] all updated and agreeable. Marietta Salazar,LINDSEY
--- NOTE | 2016-07-18 13:08 | NUR ---
discharge paperwork reviewed, no questions at this time. caregiver has some questions about the med list, charge nurse says that doc needs to re-do list and send to caregiver-Kathy Garcias RN @[phone]
--- NOTE | 2016-07-18 14:57 | PCM.DIMED ---
Chadwick Lechuga DO 07/18/16 1050: Discharge Instructions Date of Service Jul 18, 2016 Dates of Hospitalization Jul 11, 2016 at 21:23 Discharge Diagnosis Discharge Diagnosis Acute hypoxic respiratory failure, POA, improving Acute Sepsis; POA, resolved Influenza A, present on admission; Tx finished Suspected community-acquired versus aspiration pneumonia, acute, present on admission; Improving Septic Encephalopathy, POA, improved Chronic Dementia, POA Diet No restrictions Activity Outpatient Physical Therapy Call your provider Fever or Chills, Shortness of breath, Chest pain, Vomitting Patient Instructions [facility] [address] Please continue taking your medications as instructed Follow-up Provider: Yesenia Saldana MD Follow-up with PCP in: 1 week Jose Luis Nick MD 07/18/16 1457: Chadwick Lechuga DO Jul 18, 2016 10:50 Jose Luis Nick MD Jul 18, 2016 14:57
--- NOTE | 2016-07-18 14:58 | PCM.PNMED ---
Subjective Date of Service Jul 18, 2016 Subjective Mr. Foss is an 86 year old male with a history of hypertension being directly admitted from [place] for increasing difficulty breathing for 3 days with positive influenza screen. He was started on Tamiflu by his PCP on Monday and reports cough, low grade fever, myalgias, and weakness for three days with progression to confusion and labored breathing requiring increasing oxygen and duonebs to maintain normal saturation. The patient has a history of dementia at baseline, which has gotten progressively worse over the past 5 years , and now lives with his son. All other review of systems are unobtainable as there is no family available for discussion and patient is disoriented and mildly delirious. Exam Vital Signs Vital Sign - Last Date Time Temp Pulse Resp B/P Pulse Ox O2 Delivery O2 Flow Rate FiO2 07/18/16 04:33 37.1 68 18 138/78 88 Nasal Cannula 1.50 Intake and Output 07/17/16 07/17/16 07/18/16 Cumulative From/Thru 15:00 23:00 07:00 07/11/16 21:41 - 07/18/16 05:47 Intake Total 843 ml 454 ml 29386 ml Output Total 1050 ml 625 ml 51613 ml Balance -207 ml -171 ml 1139 ml Intake Oral 400 ml 50 ml 3400 ml IV Total 443 ml 404 ml 56980 ml Output Urine Total 1050 ml 625 ml 99424 ml # Bowel Movements 1 7 Lab and Diagnostics Result Diagram: 07/16/16 0245 07/16/16 0245 X-Rays, CTs and MRIs Chest X-Ray, AP Portable, from [facility] Impression: Left lower lobe airpace disease suggesting pneumonia. Signed by: Mark Paez MD 07/11/2016 1:50 PM, [place] Time 12-lead ECG From EKG taken at [facility]: Normal sinus rhythm with rate between 90 and 100, access is appropriate, no LVH, no bundle branch blocks identified, significant artifact distorting EKG; QTC of 445 Assessment & Plan 86 year old male with increasing difficulty breathing, positive for influenza A , and with LLL infiltrate on chest x-ray. Hospital day 6 #1 Acute hypoxic respiratory failure, present on admission; ongoing -Patient positive for influenza A and LLL pneumonia The patient is slowly improving but still has an oxygen requirement about 2-3 L nasal cannula. #2 Acute Sepsis; appears on admission; resolved.. -Patient presents with a fever greater than 38, tachycardiac over 100, respirations over 22, however white count is normal per transferred labs -Source is left lower lobe pneumonia versus new UTI -Patient on antibiotics as below - #3 Influenza A, present on admission; under treatment. -Patient has a positive influenza A swab per [facility] on tamiflu since 07/08/16 -Patient is NPO peramivir IV given 07/12/16. #4 suspected community-acquired versus aspiration pneumonia, acute, present on admission; ongoing -Patient is tachypneic and requiring O2 with LLL infiltrate on CXR; -Received 2gm Rocephin at [facility] We will simplify to Unasyn only for possible aspiration pneumonia. #5 septic encephalopathy, in context of chronic dementia., present on admission ; improved -Patient has baseline dementia but by report has worsened over the weekend -Likely secondary to sepsis and hypoxia -Seroquel 12.5 mg for agitation -Continue home donepezil in the a.m. 6. Baseline dementia, POA. Stable. I had a discussion on the telephone with his son today. They have looked at using this point in time as a bridge from living independently to a more assisted living situation in Monday. The patient currently has severe medical debilitation from his acute illness and well benefit from a snf facility rehabilitation Tanya will begin organize this, likely in Monday. Disposition. Anticipate a discharge to assisted living on Monday with home oxygen. I recommend discharge with home oxygen. He will require oxygen 3 L nasal cannula 24 hours a day. His family is aware of his need for short-term oxygen as he recovers fully from his influenza illness. GI Prophylaxis: H2 you VTE Prophylaxis: Sub-Q Heparin (Unfractionated) VTE Mechanical Devices: Intermittant Pneumatic CD Resuscitation Status: DNR/DNI:Do Not Resuscitate/Intubate Limited Interventions: BiPAP, Medications and IV Fluid Attending Statement The patient was seen and examined together with Dr. Lechuga on 07/18/2016 and I agree with the history, exam and plan as outlined in the note above. Chadwick Lechuga DO Jul 18, 2016 07:54 Jose Luis Nick MD Jul 18, 2016 14:58
[2016-07-18] MEDS ORDERED: DONE10TA42 PO (15:57)
[2016-07-18] MEDS ORDERED: LISI40TA PO (15:57)
--- NOTE | 2016-07-18 17:59 | PCM.DC.MED ---
Discharge Summary Date of Service Jul 18, 2016 Dates of Hospitalization Date of Hospital Admission Jul 11, 2016 at 21:23 Date of Discharge: Jul 18, 2016 Providers: Admitting Physician: Aby Pagan MD Primary Care Physician: Yesenia Saldana MD Attending Physician: Aby Pagan MD Procedures XRay, CTs & MRIs Chest X-Ray, AP Portable, from [facility] Impression: Left lower lobe airpace disease suggesting pneumonia. Signed by: Mark Paez MD 07/11/2016 1:50 PM, [place] Time PROCEDURE: X-RAY CHEST ONE VIEW, PORTABLE ([id number]) IMPRESSION: Bibasilar atelectasis versus aspiration or pneumonia. Correlate clinically. Dictated by: Mateo Matos RRA Interpreted: Ping Raygoza MD on 07/14/2016 at 16:14 Transcribed by: MARISA on 07/14/2016 at 16:14 Approved by: Ping Raygoza MD, PhD on 07/14/2016 at 16:35 ECG 12 Lead From EKG taken at [facility]: Normal sinus rhythm with rate between 90 and 100, access is appropriate, no LVH, no bundle branch blocks identified, significant artifact distorting EKG; QTC of 445 Brief History H&P taken from Chart due to patient's mental status Mr. Foss is an 86 year old male with a history of hypertension being directly admitted from [facility] for increasing difficulty breathing for 3 days with positive influenza screen. He was started on Tamiflu by his PCP on Monday and reports cough, low grade fever, myalgias, and weakness for three days with progression to confusion and labored breathing requiring increasing oxygen and duonebs to maintain normal saturation. The patient has a history of dementia at baseline, which has gotten progressively worse over the past 5 years , and now lives with his son. All other review of systems are unobtainable as there is no family available for discussion and patient is disoriented and mildly delirious. Hospital Course 86 year old male with increasing difficulty breathing, positive for influenza A , and with LLL infiltrate on chest x-ray. Admitted for treatment of Influenza A and also suspected aspiration pneumonia #1 Acute hypoxic respiratory failure, Improved -Patient positive for influenza A and LLL pneumonia on admit The patient is slowly improving but still has an oxygen requirement about 2-3 L nasal cannula at baseline. He will be discharged with short-term oxygen while recovering from Pneumonia and Influenza #2 Acute Sepsis; appears on admission; resolved.. -Patient presents with a fever greater than 38, tachycardiac over 100, respirations over 22, however white count is normal per transferred labs -Source is left lower lobe pneumoniaI -Patient completed antibiotics as below #3 Influenza A, present on admission; Treatment finished -Patient has a positive influenza A swab per [facility], on tamiflu since 07/08/16 -Patient received Peramivir IV on 07/12/16. #4 suspected community-acquired versus aspiration pneumonia, Improved -Patient is tachypneic and requiring O2 with LLL infiltrate on CXR on admit -Received 2gm Rocephin at [facility] then subsequently received Unasyn by IV for a total for 7 days. Will not require further antibiotics. #5 septic encephalopathy, in context of chronic dementia., Improved -Patient has baseline dementia but by report has worsened over the weekend prior to admission -Likely secondary to sepsis and hypoxia -Seroquel 12.5 mg for agitation -Continue home donepezil on discharge 6. Baseline dementia. Stable. Discharging to Assisted living on [place] Exam Vital Signs (Last) Date Time Temp Pulse Resp B/P Pulse Ox O2 Delivery O2 Flow Rate FiO2 07/18/16 10:58 Supplement Oxygen 07/18/16 08:43 36.6 87 18 147/85 90 07/18/16 04:33 1.50 Exam General - Elderly male in NAD while sitting in chair HEENT - Membranes moist. Anicteric sclera, PERRLA. Neck - Nontender, No JVD noted upright CV - RRR, no m/g/r. Pulses intact. Lungs - CTAB, normal effort Abd - Soft, NT/ND. +BS. No guarding. Neuro - Alert, oriented to self and place, but not time. No focal weakness noted Skin - Warm, no rashes noted. Extremities - No cyanosis, clubbing, or edema. Psych - Flat affect, cooperative Test 07/11/16 02:45 07/11/16 23:30 07/12/16 08:40 07/12/16 09:05 Urine Color Yellow (YELLOW) Urine Appearance Hazy (CLEAR,HAZY) Urine pH 6.0 (5.0-8.0) Urine Specific [place] 1.025 (1.003-1.035) Urine Protein Tracemg/dL (NEG,TRACE) Urine Glucose (UA) 100mg/dL (NEGATIVE) Urine Ketones 15mg/dL (NEGATIVE) Urine Occult Blood Moderate (NEGATIVE) Urine Nitrite Positive (NEGATIVE) Urine Bilirubin Negative (NEGATIVE) Urine Urobilinogen Normalmg/dL (NORMAL) Urine Leukocyte Esterase Negative (NEGATIVE) Urine RBC 3-10/hpf (0-2) Urine WBC 6-10/hpf (0-5) Urine Epithelial Cells Few/hpf (NONE-MOD) Urine Crystals Amorphous urates (NONE Urine Bacteria Few/hpf (NONE-FEW) Urine Hyaline Casts None/lpf (NONE) Urine Granular Casts None seen (NONE SEEN) Urine Waxy Casts None seen (NONE SEEN) Urine Red Blood Cell Casts None seen (NONE SEEN) Urine White Blood Cell Casts None seen (NONE SEEN) Urine Mucus Present (None Seen) Urine Trichomonas None seen (NONE SEEN) Urine Yeast None (NONE SEEN) Urinalysis Comment None Urine Culture Reflexed Indicated Hemoglobin A1c 5.4% (4.8-5.6) Urine Legionella pneumophilia Ag Negative (Negative) Lactic Acid Level 0.9mmol/L (0.4-2.0) Test 07/13/16 02:20 07/14/16 03:45 07/15/16 02:40 07/16/16 02:45 Phosphorus Level 1.7mg/dL (2.5-4.9) Magnesium Level 2.0mg/dL (1.6-2.6) Procalcitonin 0.53ng/mL (See Comment) Total Bilirubin 0.4mg/dL (0.0-1.2) Aspartate Amino Transf (AST/SGOT) 26U/L (0-50) Alanine Aminotransferase (ALT/SGPT) 25U/L (0-44) Alkaline Phosphatase 51U/L (25-160) Total Protein 5.2g/dL (6.4-8.4) Albumin 2.7g/dL (3.4-5.0) White Blood Count 5.2th/mm3 (3.8-10.1) Red Blood Count 4.37mil/mm3 (4.40-5.80) Hemoglobin 13.8g/dL (13.8-17.2) Hematocrit 40.8% (41.0-50.0) Mean Corpuscular Volume 93.4fL (81-100) Mean Corpuscular Hemoglobin 31.6pg (27.0-35.0) Mean Corpuscular Hemoglobin Concent 33.8% (32.0-37.0) Red Cell Distribution Width 12.2% (12.3-15.4) Platelet Count 161bil/L (150-400) Neutrophils (%) (Auto) 64.7% (40-74) Lymphocytes (%) (Auto) 20.7% (14-46) Monocytes (%) (Auto) 10.3% (4-12) Eosinophils (%) (Auto) 3.3% (0-5) Basophils (%) (Auto) 0.2% (0-3) Sodium Level 140mEq/L (134-144) Potassium Level 3.6mEq/L (3.5-5.2) Chloride Level 104mEq/L (97-108) Carbon Dioxide Level 23mmol/L (18-29) Blood Urea Nitrogen 6mg/dL (8-27) Creatinine 0.71mg/dL (0.76-1.27) Estimat Glomerular Filtration Rate 112mL/min (>59) Glucose Level 100mg/dL (60-99) Calcium Level 8.1mg/dL (8.5-10.1) Microbiology Results UA culture - MUG Blood cultures - negative Discharge Medications Discharge Medications Donepezil (Donepezil) 10 Mg Tablet 10 MG PO HS Prescribed by: SAILAJA LECHUGA DO Lisinopril (Lisinopril) 40 Mg Tablet 40 MG PO DAILY Prescribed by: SAILAJA LECHUGA DO Lisinopril-Expunged Drug, Do Not Renew! (Lisinopril-Expunged Drug, Do Not Renew! ) 10 Mg Tablet 40 MG PO DAILY (Reported) Miscellaneous Medications Donepezil (Donepezil) 10 Mg Tablet (Reported) Followup Plan Disposition: Assisted Living on [place] Discharge Diet: No restrictions Discharge Activity: No restrictions Follow-up Provider: Yesenia Saldana MD Follow-up with PCP in: 1 week Time spent 35 minutes Attending Statement The patient was seen and examined together with Dr. Lechuga on 07/18/2016 and I have agree with the assessment and plan of care as noted above. copies to: Yesenia Saldana MD [facility],Chadwick Healy DO Jul 18, 2016 17:59 Jose Luis Nick MD Jul 19, 2016 15:07
== END 2016-07-18 13:05 | disposition home or self-care (01) | DRG 189 ==
LOC: PCC 21:23 → MPC 07-17 20:31
PROVIDERS: ADMIT Urology; ATTEND Urology
PROC: 4A033R1 Measurement of Arterial Saturation, Peripheral, Percutaneous Approach (ICD-10-PCS; principal; 2016-07-11)
DX: J96.01 Acute respiratory failure with hypoxia (principal); R65.20 Severe sepsis without septic shock; G93.41 Metabolic encephalopathy; J69.0 Pneumonitis due to inhalation of food and vomit; J18.9 Pneumonia, unspecified organism; A41.9 Sepsis, unspecified organism; N39.0 Urinary tract infection, site not specified; J10.1 Influenza due to other identified influenza virus with other respiratory manifestations; Z66 Do not resuscitate; F03.90 Unspecified dementia, unspecified severity, without behavioral disturbance, psychotic disturbance, mood disturbance, and anxiety; R32 Unspecified urinary incontinence